=== PATIENT | female | born 1945 | race Caucasian/White ===

== ENCOUNTER 2017-02-13 11:24 | Emergency (ER) | payer MEDICARE, BC ==
[~2017-02-13] VITALS: Ht 167.6 cm; Wt 69.0 kg
[2017-02-13 11:33] VITALS: BP 197/82; PULSE 100; RESP 18; O2SAT 96
[2017-02-13] MEDS ORDERED: METO25TA3 PO (11:37)
[2017-02-13] MEDS ORDERED: ASPI325T PO (11:37)
[2017-02-13] MEDS ORDERED: AMLO2.5T PO (11:49)
[2017-02-13 11:51] LABS: AUTOMATED NEUTROPHIL # 3.4 TH/MM3 (1.8-7.7); BASOPHIL # 0.1 TH/MM3 (0-0.2); BASOPHIL % 0.9 % (0.0-2.0); EOSINOPHIL # 0.1 TH/MM3 (0-0.4); EOSINOPHIL % 1.8 % (0.0-4.0); HEMATOCRIT 37.6 % (35.0-46.0); HEMO FLAGS DIFF FINAL; LYMPH % 33.3 % (9.0-44.0); LYMPHOCYTE # 2.1 TH/MM3 (1.0-4.8); MEAN CELL VOLUME 87.1 FL (80.0-100.0); MEAN CORPUSCULAR HEMOGLOBIN 29.3 PG (27.0-34.0); MEAN CORPUSCULAR HGB CONC 33.6 % (32.0-36.0); MONO % 10.3 % (0.0-8.0); NEUT % 53.7 % (16.0-70.0); PLATELET COUNT 228 TH/MM3 (150-450); RED BLOOD COUNT 4.32 MIL/MM3 (4.00-5.30); RED CELL DISTRIBUTION WIDTH 12.1 % (11.6-17.2); WHITE BLOOD COUNT 6.4 TH/MM3 (4.0-11.0)
--- NOTE | 2017-02-13 11:55 | PD ---
HPI Chief Complaint: Neuro Symptoms/ Deficits Time Seen by Provider: 11:31 Travel History International Travel<30 days: No Contact w/Intl Traveler<30days: No Traveled to known affect area: No History of Present Illness HPI This 71-year-old female says she was up this morning. She had an episode that lasted for about 3 minutes where she lost vision in her left eye. She says this lasted for about 3 minutes and the patient has returned. She also had some heaviness in the left arm. She checked her blood pressure at home and was elevated at 160/103. She says that she felt like her heart was somewhat erratic at that time. She does have a history of mitral valve regurgitation. She says that in September 1999 and she was admitted to the hospital. At that time she was not feeling well and she had some numbness. She was told that she might of had a TIA. She says that a CT scan confirmed that she had TIA. She is supposed to take aspirin every day. She says she is not always compliant with the aspirin that she didn't take it today after the symptoms developed. She is on metoprolol and amlodipine as it takes her medication at noon. The heaviness in the arm is also resolved. PFSH Past Medical History ?: Not Social History Tobacco Use: No Substance Use: No Allergies-Medications (Allergen,Severity, Reaction): Coded Allergies: No Known Allergies (Unverified , 02/13/17) Reported Meds & Prescriptions Reported Meds & Active Scripts Active Plavix (Clopidogrel Bisulfate) 75 Mg Tab 75 Mg PO DAILY 30 Days Plavix (Clopidogrel Bisulfate) 75 Mg Tab 75 Mg PO DAILY 30 Days Reported Amlodipine (Amlodipine Besylate) 2.5 Mg Tab 2.5 Mg PO DAILY Aspirin 325 Mg Tab 325 Mg PO DAILY Metoprolol Tartrate 25 Mg Tab 25 Mg PO BID Review of Systems General / Constitutional: No: Fever, Chills Eyes: Positive: Visual changes, Blindness, No: Diploplia HENT: No: Headaches, Vertigo Cardiovascular: No: Chest Pain or Discomfort, Palpitations Respiratory: No: Cough, Shortness of Breath Gastrointestinal: No: Nausea, Vomiting Genitourinary: No: Urgency, Frequency Musculoskeletal: No: Myalgias, Arthralgias Skin: No Rash, No Itching Neurologic: No: Weakness, Dizziness Hematologic/Lymphatic: No: Easy Bruising Physical Exam Narrative GENERAL: Well-developed female SKIN: Focused skin assessment warm/dry. HEAD: Atraumatic. Normocephalic. EYES: Pupils equal and round. No scleral icterus. No injection or drainage. ENT: No nasal bleeding or discharge. Mucous membranes pink and moist. NECK: Trachea midline. No JVD. CARDIOVASCULAR: Regular rate and rhythm. No murmur appreciated. RESPIRATORY: No accessory muscle use. Clear to auscultation. Breath sounds equal bilaterally. GASTROINTESTINAL: Abdomen soft, non-tender, nondistended. Hepatic and splenic margins not palpable. MUSCULOSKELETAL: No obvious deformities. No clubbing. No cyanosis. No edema. NEUROLOGICAL: Awake and alert. No obvious cranial nerve deficits. Motor grossly within normal limits. Normal speech. [employer] are equal. There is no drift of the arms. There is good strength in plantar and dorsiflexion. Sensation arms legs and trunk are intact PSYCHIATRIC: Appropriate mood and affect; insight and judgment normal. Data Data Last Documented VS Vital Signs Date Time Temp Pulse Resp B/P (MAP) Pulse Ox O2 Delivery O2 Flow Rate FiO2 02/13/17 14:52 02/13/17 12:19 90 18 98 Room Air Orders Orders Complete Blood Count With Diff (02/13/17 11:41) Basic Metabolic Panel (Bmp) (02/13/17 11:41) Troponin I (02/13/17 11:41) Prothrombin Time / Inr (Pt) (02/13/17 11:41) Act Partial Throm Time (Ptt) (02/13/17 11:41) Ct Brain W/O Iv Contrast(Rout) (02/13/17 11:41) Metoprolol Tartrate (Lopressor) (02/13/17 12:45) Amlodipine (Norvasc) (02/13/17 12:45) Cta Brain W Iv Contrast W 3d (02/13/17 12:45) Cta Neck W Iv Contrast W 3d (02/13/17 12:45) Clopidogrel (Plavix) (02/13/17 13:00) Iohexol 350 Inj (Omnipaque 350 Inj) (02/13/17 13:00) Electrocardiogram (02/13/17 11:34) Labs Laboratory Tests Test 02/13/17 11:45 White Blood Count 6.4 TH/MM3 Red Blood Count 4.32 MIL/MM3 Hemoglobin 12.6 GM/DL Hematocrit 37.6 % Mean Corpuscular Volume 87.1 FL Mean Corpuscular Hemoglobin 29.3 PG Mean Corpuscular Hemoglobin Concent 33.6 % Red Cell Distribution Width 12.1 % Platelet Count 228 TH/MM3 Mean Platelet Volume 9.4 FL Neutrophils (%) (Auto) 53.7 % Lymphocytes (%) (Auto) 33.3 % Monocytes (%) (Auto) 10.3 % Eosinophils (%) (Auto) 1.8 % Basophils (%) (Auto) 0.9 % Neutrophils # (Auto) 3.4 TH/MM3 Lymphocytes # (Auto) 2.1 TH/MM3 Monocytes # (Auto) 0.7 TH/MM3 Eosinophils # (Auto) 0.1 TH/MM3 Basophils # (Auto) 0.1 TH/MM3 CBC Comment DIFF FINAL Differential Comment Prothrombin Time 10.4 SEC Prothromb Time International Ratio 0.9 RATIO Activated Partial Thromboplast Time 23.2 SEC Blood Urea Nitrogen 18 MG/DL Creatinine 0.91 MG/DL Random Glucose 112 MG/DL Calcium Level 9.1 MG/DL Sodium Level 140 MEQ/L Potassium Level 3.6 MEQ/L Chloride Level 105 MEQ/L Carbon Dioxide Level 26.2 MEQ/L Anion Gap 9 MEQ/L Estimat Glomerular Filtration Rate 61 ML/MIN Troponin I LESS THAN 0.02 NG/ML MDM Medical Decision Making Medical Screen Exam Complete: Yes Emergency Medical Condition: Yes Medical Record Reviewed: Yes Differential Diagnosis Differential includes TIA, CVA, hypertension Narrative Course CC the brain is negative. Patient's symptoms have resolved and are consistent with TIA though it is peculiar that it was the left visual field on the left arm that were affected. I discussed the case with Dr. Mendoza recommends CTA and addition of Plavix to her aspirin. CTA has been read as negative Diagnosis Primary Impression: Transient ischemic attack Qualified Codes: G45.3 - Amaurosis fugax Scripts Clopidogrel (Plavix) 75 Mg Tab 75 MG PO DAILY for Blood Clot Prevention for 30 Days, #30 TAB 0 Refills Prov: Garth Hendrickson MD 02/13/17 Clopidogrel (Plavix) 75 Mg Tab 75 MG PO DAILY for Blood Clot Prevention for 30 Days, #30 TAB 0 Refills Prov: Garth Hendrickson MD 02/13/17 Disposition: 01 DISCHARGE HOME Condition: Stable Garth Hendrickson MD Feb 13, 2017 11:54
[2017-02-13 12:02] LABS: CHLORIDE 105 MEQ/L (98-107); POTASSIUM 3.6 MEQ/L (3.5-5.1); SODIUM (NA) 140 MEQ/L (136-145)
[2017-02-13 12:06] LABS: ANION GAP 9 MEQ/L (5-15); APTT (PATIENT) 23.2 SEC (24.3-30.1); BICARBONATE 26.2 MEQ/L (21.0-32.0); INTERNATIONAL NORMALIZED RATIO 0.9 RATIO; PROTHROMBIN TIME - PATIENT 10.4 SEC (9.8-11.6)
[2017-02-13 12:07] LABS: BLOOD UREA NITROGEN 18 MG/DL (7-18)
[2017-02-13 12:10] LABS: GLOMERULAR FILTRATION RATE 61 ML/MIN (>89)
[2017-02-13 12:19] VITALS: BP 186/95; PULSE 90; RESP 18; O2SAT 98
--- NOTE | 2017-02-13 12:30 | RADRPT ---
EXAM DATE/TIME: 02/13/2017 12:10 [facility] COMPARISON: No previous studies available for comparison. INDICATIONS : Sudden visual loss left eye, lasting 2-3 minutes. RADIATION DOSE: 57.93 CTDIvol (mGy) MEDICAL HISTORY : Cardiovascular disease. Hypertension. TIA SURGICAL HISTORY : None. ENCOUNTER: Initial ACUITY: 1 day PAIN SCALE: 0/10 LOCATION: Left cranial TECHNIQUE: Multiple contiguous axial images were obtained of the head. Using automated exposure control and adj ustment of the mA and/or kV according to patient size, radiation dose was kept as low as reasonably a chievable to obtain optimal diagnostic quality images. DICOM format image data is available electro nically for review and comparison. FINDINGS: CEREBRUM: The ventricles are normal for age. No evidence of midline shift, mass lesion, hemorrhage or acute in farction. No extra-axial fluid collections are seen. POSTERIOR FOSSA: The cerebellum and brainstem are intact. The 4th ventricle is midline. The cerebellopontine angle i s unremarkable. EXTRACRANIAL: The visualized portion of the orbits is intact. SKULL: The calvaria is intact. No evidence of skull fracture. CONCLUSION: 1. No acute intracranial abnormality identified. Elder Rolon MD on February 13, 2017 at 12:28 Board Certified Radiologist. This report was verified electronically.
[2017-02-13] MEDS ORDERED: METOPROLOL TARTRATE 25 MG TAB PO ONE (12:45)
[2017-02-13] MEDS ORDERED: amLODIPine BESYLATE 5 MG TAB PO ONE (12:45)
[2017-02-13] MEDS ORDERED: IOHEXOL 350 MG/ML 10 ML VIAL (for RAD DIAG) IVCONTRAST ONE (13:00)
[2017-02-13] MEDS ORDERED: CLOPIDOGREL 75 MG TAB PO ONE (13:00)
[2017-02-13 14:05] VITALS: BP 176/92
--- NOTE | 2017-02-13 14:17 | EKG ---
Date Performed: 02/13/2017 Time Performed: 11:34:13 PTAGE: 71 years EKG: SINUS TACHYCARDIA NONSPECIFIC ST & T-WAVE ABNORMALITY ABNORMAL RHYTHM ECG INTERPRETATION BA SED ON A DEFAULT AGE OF 39 YEARS NO PREVIOUS TRACING DOCTOR: Dave Rushing Interpretating Date/Time 02/13/2017 14:13:56
--- NOTE | 2017-02-13 14:28 | RADRPT ---
EXAM DATE/TIME: 02/13/2017 13:00 [facility] COMPARISON: No previous studies available for comparison. INDICATIONS : Loss of vision left eye, left arm weakness. IV CONTRAST: 96 cc Omnipaque 350 (iohexol) IV ; Cumulative dose for multiple exams. RADIATION DOSE: 43.13 CTDIvol (mGy) ; Combined studies MEDICAL HISTORY : Hypertension. Cardiovascular disease SURGICAL HISTORY : None. ENCOUNTER: Initial ACUITY: 1 day PAIN SCALE: 0/10 LOCATION: Left neck Elevated flow velocities and ICA/CCA ratios have been found to correlate with increased degrees of vessel stenosis, calculated as percentage of diameter relative to a normal segment of distal ICA/CCA. TECHNIQUE: Volumetric scanning was performed using a multirow detector CT scanner. The data was post processed with a variety of visualization algorithms including full-volume maximum intensity projection, multip lanar sliding thin-slab reformation, curved-planar reformation, and surface-rendering techniques. Us ing automated exposure control and adjustment of the mA and/or kV according to patient size, radiatio n dose was kept as low as reasonably achievable to obtain optimal diagnostic quality images. DICOM f ormat image data is available electronically for review and comparison. FINDINGS: AORTIC ARCH: Truncus arch anatomy. Arch vessels are widely patent. RIGHT CAROTID: The common carotid artery is intact. The carotid bulb has a normal configuration without ulceration o r narrowing. The internal carotid artery lumen is smooth without stenosis. The external carotid heather ry is intact. LEFT CAROTID: The common carotid artery is intact. The carotid bulb has a normal configuration without ulceration or narrowing. The internal carotid artery lumen is smooth without stenosis. The external carotid ar priscila is intact. VERTEBRALS: The vertebral arteries have a symmetric diameter. No stenotic lesions are seen. CONCLUSION: Negative study nAgel Lyon MD on February 13, 2017 at 14:24 Board Certified Radiologist. This report was verified electronically.
[2017-02-13] MEDS ORDERED: PLAV75TA29 PO ×2 (14:32→14:53)
[2017-02-13 14:35] VITALS: BP 172/85
--- NOTE | 2017-02-13 14:39 | RADRPT ---
EXAM DATE/TIME: 02/13/2017 13:00 [facility] COMPARISON: No previous studies available for comparison. INDICATIONS : Left eye visual loss, left arm weakness IV CONTRAST: 96 cc Omnipaque 350 (iohexol) IV ; Cumulative dose for multiple exams. RADIATION DOSE: 43.13 CTDIvol (mGy) ; Combined studies MEDICAL HISTORY : Hypertension. TIA SURGICAL HISTORY : None. ENCOUNTER: Initial ACUITY: 1 day PAIN SCALE: 0/10 LOCATION: Left cranial TECHNIQUE: Volumetric scanning was performed using a multi-row detector CT scanner. The data was post processed with a variety of visualization algorithms including full volume maximum intensity projection, multi -planar sliding thin slab reformation, curved planar reformation, and surface rendering techniques. Using automated exposure control and adjustment of the mA and/or kV according to patient size, radiat ion dose was kept as low as reasonably achievable to obtain optimal diagnostic quality images. DICO M format image data is available electronically for review and comparison. FINDINGS: There is excellent visualization of the major intracranial arteries out to the second-order branch ve ssels. There is no evidence for aneurysm, vessel truncation or stenosis, and no evidence for vascula r malformation. CONCLUSION: Normal examination. Angel Lyon MD on February 13, 2017 at 14:34 Board Certified Radiologist. This report was verified electronically.
== END 2017-02-13 14:59 | disposition home or self-care (01) ==
LOC: PHED 11:24
DX: G45.3 Amaurosis fugax (principal); R94.31 Abnormal electrocardiogram [ECG] [EKG]
CPT/HCPCS: 70450; 70496; 70498; 80048; 84484; 85025; 85610; 85730; 93005; 99285; Q9967